=== PATIENT | female | born 1955 | race Caucasian/White ===

== ENCOUNTER 2020-08-02 17:04 | Emergency (ER) | payer MEDICARE, MEDICAID, SELFPAY ==
[2020-08-02] VITALS (13 sets, daily range): BP systolic 105–165; BP diastolic 47–75; PULSE 71–99; RESP 13–22; TEMP 37.2–37.3; O2SAT 94–98
--- NOTE | ~2020-08-02 | XR_ITS ---
XR chest 2V DATE: 08/02/2020 18:16 INDICATION: Chest and epigastric pain radiating to back. Fatigue. TECHNIQUE: PA and lateral views COMPARISON: 06/02/2015 CT chest 06/01/2015 2 view chest FINDINGS: Heart size is within normal range. Mild aortic calcification and unfolding. Discoid atelectasis or more likely discoid scarring in the left lower lobe. No pulmonary infiltrate o r consolidation, pleural effusion or pulmonary vascular congestion or pneumothorax is detected. Diffuse osteopenia. IMPRESSION: Chronic discoid scarring or less likely atelectasis, left lower lobe Reviewed, dictated and finalized at [facility]. IMPRESSION: Chronic discoid scarring or less likely atelectasis, left lower lob e
--- NOTE | ~2020-08-02 | CT_ITS ---
EXAMINATION: CT abdomen pelvis w con DATE: 08/02/2020 21:43 INDICATION: Right upper quadrant and epigastric abdominal pain TECHNIQUE: Computed tomography (CT) of the abdomen and pelvis was performed with 100 cc Omnipaque 350 intravenous contrast. Automated exposure control and iterative reconstruction technique were employe d. Exam dose: 303.28 mGy-cm total exam DLP. COMPARISON: None. FINDINGS: There is discoid atelectasis and/or scarring at both lung bases. Calcified lingular pulmona ry granuloma. Normal heart size. No pericardial or pleural effusion. There is hepatic steatosis. No hepatic, splenic, pancreatic, and adrenal or renal space-occupying mas s lesion is evident. The gallbladder is present. No bile duct or pancreatic duct dilatation. No urinary tract calculus or hydroureteronephrosis. Normal caliber of the abdominal aorta. No intraperitoneal or retroperitoneal or pelvic mass lesion or adenopathy or ascites. The urinary tho dder is unremarkable. Status post hysterectomy. There is a prominent amount fecal material in the colon but no bowel obstruction. Included skeletal structures are unremarkable. IMPRESSION: Hepatic steatosis Status post hysterectomy Reviewed, dictated and finalized at [facility]. Reviewed, dictated and finalized at [facility].
--- NOTE | 2020-08-02 17:16 | ECG_ITS ---
Measurements Intervals [place] Rate: 93 P: 50 WI: 158 QRS: 31 QRSD: 77 T: 56 QT: 355 QTc: 443 Interpretive Statements SINUS RHYTHM BASELINE ARTIFACT- I, II, III, AVR, AVL NORMAL ECG Electronically Signed On 08-03-2020 7:24:30 CDT by Ronald Penn D.O.
[2020-08-02 17:28] LABS: Basophils Percent Auto 0.4 % (0.2-1.2); Eosinophils Percent Auto 0.6 % (0-4.4); Lymphocytes Absolute Auto 1.31 K/mm3 (0.9-3.2); Lymphocytes Percent Auto 25.9 % (18.3-44.2); Mean Corpuscular HGB Conc 33.3 g/dl (32-36); Mean Corpuscular Hemoglobin 30.3 pg (26-34); Mean Corpuscular Volume 90.9 fl (80-100); Mean Platelet Volume 11.4 fl (7.4-10.4); Monocytes Absolute Auto 0.6 K/mm3 (0.1-0.6); Monocytes Percent Auto 12.5 % (2.6-8.5); Neutrophils Absolute Auto 3.1 K/mm3 (1.3-6.7); Neutrophils Percent Auto 60.6 % (45.5-73.1); Platelet Count Result 208 k/mm3 (150-375); Red Blood Count 4.29 M/mm3 (4.2-5.4); Red Cell Distribution Width 13.8 % (11.5-14.5); White Blood Count 5.1 K/mm3 (4.5-10.0)
[2020-08-02 17:40] LABS: Anion Gap 5 mmol/L (8-16); Blood Urea Nitrogen 18 mg/dL (7-17); Carbon Dioxide 34 mmol/L (22-30); Chloride 100 mmol/L (98-107); Estimated CRCL calculation 67 ml/min; Estimated Glomerular Filt Rate > 60; Glucose 104 mg/dL (65-105); Sodium 139 mmol/L (137-145)
[2020-08-02 17:50] LABS: Troponin I < 0.012 ng/mL (0.000-0.034)
[2020-08-02 18:05] LABS: INR 0.8; Partial Thromboplastin Time 24.9 SECONDS (22.3-36.8)
--- NOTE | 2020-08-02 20:57 | ED.GENADULT ---
HPI - General Adult General Chief complaint: Chest Pain Stated complaint: chest pain Time Seen by Provider: 08/02/20 20:10 History of Present Illness HPI narrative: Patient is a six 5-year-old female who presents the emergency department chief complaint of epigastric pain. Patient explains days states the discomfort is improved whenever she eats but then comes back several hours later. Patient states that it radiates to her back. Patient states that she is not had any fever or chills reports a little bit of nausea with this reports just prior [employer] surgeries no prior gallbladder or appendix surgeries. Related Data Allergies Allergy/AdvReac Type Severity Reaction Status Date / Time No Known Allergies Allergy Unverified 03/29/18 11:55 Review of Systems Review of Systems: Narrative: A 10 system review of systems was completed on the patient and is negative except for what is stated in the HPI. Nursing and ancillary documentation was reviewed. [facility] Family History Family History Grandparent Diabetes mellitus Cerebrovascular accident, Onset Age: 68 Family history of malignant neoplasm of bone Family history of emphysema Sibling Diabetes mellitus Hypertension Mother Family history of hepatitis Father Family history of lung cancer Family history of malignant neoplasm of bone Social History Social History Smoking status: Former smoker Smoking end date: 04/21/99 Alcohol intake: never Exam Narrative: Exam Narrative: GENERAL: Well-appearing, well-nourished, and in no acute distress. HEAD: Normocephalic, atraumatic. EYES: PERRLA and EOMI. ENT: Nares clear, no rhinorrhea or epistaxis. Mucous membranes moist. NECK: Supple. CHEST: Clear to auscultation. No respiratory distress. HEART: Regular rate and rhythm. No murmur heard. Normal peripheral pulses. ABDOMEN: Soft, tender to palpation in the epigastric region, nondistended, normal active bowel sounds. EXTREMITIES: Normal range of motion. No edema. SKIN: Warm, dry, no rash. NEURO: No focal deficits. Alert and oriented x3. PSYCH: Normal mood and affect. Course Vital Signs Vital signs: Vital Signs Temperature 37.3 C 08/02/20 17:17 Pulse Rate 99 08/02/20 17:17 Respiratory Rate 20 08/02/20 17:17 Blood Pressure 147/74 H 08/02/20 17:17 Pulse Oximetry 98 08/02/20 17:17 Temperature 37.2 C 08/02/20 19:56 Pulse Rate 71 08/02/20 21:30 Respiratory Rate 14 08/02/20 21:30 Blood Pressure 165/70 H 08/02/20 20:31 Pulse Oximetry 98 08/02/20 21:30 Medical Decision Making Vital Signs Vital Signs: Vital Signs Temperature 37.3 C 08/02/20 17:17 Pulse Rate 99 08/02/20 17:17 Respiratory Rate 20 08/02/20 17:17 Blood Pressure 147/74 H 08/02/20 17:17 Pulse Oximetry 98 08/02/20 17:17 Temperature 37.2 C 08/02/20 19:56 Pulse Rate 71 08/02/20 21:30 Respiratory Rate 14 08/02/20 21:30 Blood Pressure 165/70 H 08/02/20 20:31 Pulse Oximetry 98 08/02/20 21:30 Lab Data Result diagrams: 08/02/20 17:22 08/02/20 17:22 Labs: Lab Results 08/02/20 08/02/20 08/02/20 Range/Units 17:22 17:22 17:22 WBC 5.1 (4.5-10.0) K/mm3 RBC 4.29 (4.2-5.4) M/mm3 Hgb 13.0 (12.0-15.0) g/dL Hct 39.0 (37.0-47.0) % MCV 90.9 (80-100) fl MCH 30.3 (26-34) pg MCHC 33.3 (32-36) g/dl RDW 13.8 (11.5-14.5) % Plt Count 208 (150-375) k/mm3 MPV 11.4 H (7.4-10.4) fl Immature Gran % (Auto) 0.0 (0-0.5) % Neut % (Auto) 60.6 (45.5-73.1) % Lymph % (Auto) 25.9 (18.3-44.2) % Upson % (Auto) 12.5 H (2.6-8.5) % Eos % (Auto) 0.6 (0-4.4) % Baso % (Auto) 0.4 (0.2-1.2) % Lymph # (Auto) 1.31 (0.9-3.2) K/mm3 Upson # (Auto) 0.6 (0.1-0.6) K/mm3 Eos # (Auto) 0.0 (0-0.3) K/mm3 Baso # (Auto) 0.0 (0.0-0.1)
[2020-08-02] MEDS: MORPHINE SULFATE (*CRX) 4 MG/ML INJ IV PUSH (21:03)
[2020-08-02] MEDS: ONDANSETRON INJ 4 MG/2 ML VIAL IV PUSH (21:03)
[2020-08-02] MEDS: SODIUM CHLORIDE 0.9% IV 1,000 ML 999 ML IV CONT (21:04)
[2020-08-02] MEDS: BELLADONNA ALK/PHENOB ELIX 10 ML, MAG HYDROX/ALUMINUM HYD/SIMETH 30 ML, LIDOCAINE HCL 2... PO (21:04)
[2020-08-02 21:32] LABS: Alanine Aminotransferase 33 U/L (4-35); Albumin Level 4.6 g/dL (3.5-5.1); Alkaline Phosphatase 88 U/L (38-126); Aspartate Amino Transferase 51 U/L (14-36); Bilirubin,Total 0.5 mg/dL (0.2-1.3); Lipase 95 U/L (23-300)
[2020-08-02 21:33] LABS: Troponin I < 0.012 ng/mL (0.000-0.034)
== END 2020-08-02 22:35 | disposition home or self-care (01) ==
PROVIDERS: Emergency Medicine; Emergency Provider Emergency Medicine
DX: K29.00 Acute gastritis without bleeding (principal); R07.89 Other chest pain; Z87.891 Personal history of nicotine dependence
CPT/HCPCS: 36415; 71046; 74177; 80048; 80076; 83690; 84484; 85025; 85610; 85730; 93005; 96361; 96374; 96375; 99284; A9270; J2270; J2405; J7030; Q9967

== ENCOUNTER 2024-01-21 09:13 | Emergency (ER) | payer MEDICARE, MEDICAID, SELFPAY ==
[2024-01-21 09:33] VITALS: BP 173/69; PULSE 80; RESP 16; TEMP 36.4; O2SAT 98
--- NOTE | 2024-01-21 10:25 | ED.EYEPROB ---
HPI - Eye Problem General Chief complaint: Eye Problems Stated complaint: EYE REDNESS Time Seen by Provider: 01/21/24 10:16 Source: patient and RN notes reviewed Mode of arrival: ambulatory Limitations: no limitations History of Present Illness HPI Narrative: Patient presents today complaining of right eye irritation, redness, weeping. Weeping has been present for 4 days and the irritation and redness started today. Patient has tried some old eyedrops for red eye without relief. Patient was recently diagnosed with mild macular degeneration by her eye doctor and was placed on some oral vitamins. States she has been outside a lot recently watching football games. Related Data Home Medications Medication Instructions Recorded Confirmed No Home Medications 01/21/24 01/21/24 Allergies Allergy/AdvReac Type Severity Reaction Status Date / Time No Known Allergies Allergy Verified 01/21/24 09:42 Review of Systems Review of Systems: CONSTITUTIONAL: Denies body aches, fever, chills, or sweats. EYES: Denies visual changes. + right eye redness irritation drainage ENT: Denies rhinorrhea, congestion, sore throat, or otalgia. CARDIOVASCULAR: Denies chest pain, palpitations, or edema. RESPIRATORY: Denies cough or dyspnea. GASTROINTESTINAL: Denies abdominal pain, nausea, vomiting, or diarrhea. GENITOURINARY: Denies dysuria or hematuria. SKIN: Denies rash, itching, or wounds. MUSCULOSKELETAL: Denies back pain, joint pain, or myalgia. NEUROLOGIC: Denies headache, numbness, tingling, or weakness. PSYCH: Denies depression or anxiety. [facility] Family History Family History Grandparent Diabetes mellitus Cerebrovascular accident, Onset Age: 68 Family history of malignant neoplasm of bone Family history of emphysema Sibling Diabetes mellitus Hypertension Mother Family history of hepatitis Father Family history of lung cancer Family history of malignant neoplasm of bone Social History Social History Smoking status: Former smoker Smoking end date: 04/21/99 Alcohol intake: never Comments At time of signature, I have reviewed and agree with nursing past medical, surgical, social and family history unless otherwise noted. Please see nursing chart for further information. There is no relevant family history pertinent to the presenting complaint Exam Narrative: GENERAL: Well-appearing, well-nourished, and in no acute distress. HEAD: Normocephalic, atraumatic. EYES: EOMI. PERRL. Right eye: moderate chemosis inferiorly and laterally. Lids and lashes normal. No purulent discharge. Left eye normal ENT: Mucous membranes pink and moist. Nares clear. NECK: Normal AROM. CHEST: No respiratory distress. EXTREMITIES: Normal range of motion. No edema. SKIN: Warm, dry, no rash. Capillary refill normal. Normal skin turgor. NEURO: No focal deficits. Alert and oriented x3. Gait steady. PSYCH: Normal affect. No signs of depression or anxiety. Course Course Level of Care: Express Care Visit Vital Signs Vital signs: Vital Signs Oxygen Delivery Room Air 01/21/24 09:30 Temperature 97.6 F 01/21/24 09:33 Pulse Rate 80 01/21/24 09:33 Respiratory Rate 16 01/21/24 09:33 Blood Pressure 173/69 H 01/21/24 09:33 Pulse Oximetry 98 01/21/24 09:33 Oxygen Delivery Room Air 01/21/24 09:30 Reviewed MDM - Eye Problem MDM Narrative Medical decision making narrative: Patient's symptoms are likely due to an irritant or allergies. Recommend antihistamine eyedrops with eye doctor follow-up if symptoms are not improving. Anticipatory guidance given. Differential Diagnosis Differential diagnosis: Likely corneal abrasion, conjunctivitis and subconjunctival hemorrhage Critical Care Time Critical Care Time Critical Care Time: No Discharge Plan Discharge Clinical Impr
== END 2024-01-21 10:35 | disposition home or self-care (01) ==
PROVIDERS: Emergency Provider Nurse Practitioner
DX: H10.31 Unspecified acute conjunctivitis, right eye (principal); Z87.891 Personal history of nicotine dependence; H35.30 Unspecified macular degeneration
CPT/HCPCS: 99212; G0463